=== PATIENT | female | born 1980 | race Caucasian/White ===

== ENCOUNTER 2021-10-14 11:40 | Emergency (ER) | payer SELFPAY ==
[~2021-10-14] VITALS: Ht 152.4 cm; Wt 80.0 kg
[2021-10-14] MEDS ORDERED: HYDROCODONE/ACETAMINOPHEN 5/325MG TABLET PO ONE (12:00)
[2021-10-14 12:22] VITALS: BP 148/92
[2021-10-14] MEDS ORDERED: HYDR-4001 MT (12:57)
== END 2021-10-14 14:04 | disposition home or self-care (01) ==
LOC: ER 11:40
DX: S42.392A Other fracture of shaft of left humerus, initial encounter for closed fracture (principal); W01.190A Fall on same level from slipping, tripping and stumbling with subsequent striking against furniture, initial encounter; Y93.89 Activity, other specified; Y92.89 Other specified places as the place of occurrence of the external cause
CPT/HCPCS: 29105; 99283